=== PATIENT | female | born 1955 | race Caucasian/White ===

== ENCOUNTER 2017-06-05 08:44 | Outpatient (CLI) | payer OTHER ==
--- NOTE | 2017-06-05 10:28 | RAD ---
THREE VIEWS RIGHT ANKLE: Indication: Right ankle pain and swelling. FINDINGS: There is a nondisplaced transversely oriented fracture involving the distal aspect of the lateral mal leolus below the level of the tibiotalar joint line. Ankle mortise and talar dome are preserved. No a dditional acute osseous abnormality is evident. Enthesopathic change is seen off the posterior calcan eus. There are phleboliths within the anterior soft tissues of the distal right foreleg. IMPRESSION: Nondisplaced lateral malleolar fracture. POS: BILLY
== END 2017-06-05 08:45 | disposition home or self-care (01) ==
LOC: RAD-FRANK 08:44
PROVIDERS: ATTEND Nurse Practitioner Family
DX: M25.571 Pain in right ankle and joints of right foot (principal); S82.64XA Nondisplaced fracture of lateral malleolus of right fibula, initial encounter for closed fracture

== ENCOUNTER 2022-02-07 11:26 | Outpatient (CLI) | payer OTHER | END 2022-02-07 11:27 | disposition home or self-care (01) | LOC: RAD-FRANK 11:26 | PROVIDERS: ATTEND Nurse Practitioner Family | DX: R07.81 Pleurodynia (principal) ==

== ENCOUNTER 2024-02-18 14:19 | Outpatient (CLI) | payer MEDICARE, OTHER | END 2024-02-18 14:20 | disposition home or self-care (01) | LOC: BICMAMMO 14:19 | PROVIDERS: ATTEND Nurse Practitioner Family | DX: Z12.31 Encounter for screening mammogram for malignant neoplasm of breast (principal); Z80.3 Family history of malignant neoplasm of breast; Z91.89 Other specified personal risk factors, not elsewhere classified | CPT/HCPCS: 77063; 77067 ==